=== PATIENT | female | born 1970 | race Two or more races ===

== ENCOUNTER 2019-05-19 08:17 | Emergency (ER) | payer BC ==
[~2019-05-19] VITALS: Ht 160 cm; Wt 72.7 kg
[2019-05-19 08:23] VITALS: BP 134/64; Ht 160 cm; Wt 72.7 kg
[2019-05-19] MEDS ORDERED: DOXYCYCLINE HY100 M2 PO (09:03)
== END 2019-05-19 09:22 | disposition home or self-care (01) ==
LOC: D.ER 08:17
DX: L02.512 Cutaneous abscess of left hand (principal); F17.210 Nicotine dependence, cigarettes, uncomplicated